=== PATIENT | female | born 1970 | race Caucasian/White ===

== ENCOUNTER → 2016-08-08 | Outpatient (CLI) | payer BC | LOC: ECHO 11:57 | DX: I49.3 Ventricular premature depolarization (principal); R55 Syncope and collapse; R00.2 Palpitations | CPT/HCPCS: ECHO; 93306 ==

== ENCOUNTER → 2020-12-11 | Outpatient (CLI) | payer BC | LOC: HEART 5 10-16 14:00 → ECHO 11-03 10:00 → HEART 5 11-03 11:00 → ECHO 11-06 09:00 | DX: I42.0 Dilated cardiomyopathy (principal); I34.0 Nonrheumatic mitral (valve) insufficiency; R00.2 Palpitations | CPT/HCPCS: ECHO; 93306 ==

== ENCOUNTER 2021-10-14 06:45 | Inpatient (IN) | payer BC ==
[~2021-10-14] VITALS: Ht 170.2 cm; Wt 78.0 kg
[2021-10-14 08:08] LABS: HEMOGLOBIN 13.1 gm/dl (12.3-15.3); RED BLOOD COUNT 4.49 M/UL (4.00-5.10); WHITE BLOOD COUNT 5.8 K/UL (4.5-11.0)
[2021-10-14 08:28] LABS: BUN/CREATININE RATIO 22 (0-10)
[2021-10-14] MEDS ORDERED: METOPROLOL TART25 MG PO (11:02)
[2021-10-14] MEDS ORDERED: ANASTROZOLE1 MG PO (11:02)
[2021-10-14] MEDS ORDERED: MELOXICAM15 MG PO (11:03)
[2021-10-14] MEDS ORDERED: PROAIR HFA8.5 GM INH (11:04)
[2021-10-14] MEDS ORDERED: COMPLETE FORMU1 EAC2 PO (11:05)
[2021-10-15 05:52] LABS: HEMOGLOBIN 13.1 gm/dl (12.3-15.3); RED BLOOD COUNT 4.4 M/UL (4.00-5.10); WHITE BLOOD COUNT 4.4 K/UL (4.5-11.0)
[2021-10-15 06:09] LABS: BUN/CREATININE RATIO 24 (0-10)
[2021-10-16 06:57] LABS: HEMOGLOBIN 13.6 gm/dl (12.3-15.3); RED BLOOD COUNT 4.74 M/UL (4.00-5.10)
[2021-10-16 07:02] LABS: WHITE BLOOD COUNT 5.9 K/UL (4.5-11.0)
[2021-10-16 07:20] LABS: BUN/CREATININE RATIO 35 (0-10)
--- NOTE | 2021-10-16 16:37 | NUR ---
WEANED PATIENT OFF HER OXYGEN TO ROOM AIR, SHE DENIES SOA AND SAT IS 96% AFTER 5 MINUTES OFF NC.
[2021-10-17 06:07] LABS: HEMOGLOBIN 12.9 gm/dl (12.3-15.3); RED BLOOD COUNT 4.32 M/UL (4.00-5.10)
[2021-10-17 06:18] LABS: WHITE BLOOD COUNT 4.3 K/UL (4.5-11.0)
[2021-10-17 06:26] LABS: BUN/CREATININE RATIO 38 (0-10)
[2021-10-17] MEDS ORDERED: LISINOPRIL5 MG PO (09:48)
[2021-10-17] MEDS ORDERED: METOPROLOL SUCC25 MG PO (09:48)
[2021-10-17] MEDS ORDERED: FUROSEMIDE20 MG PO (09:48)
[2021-10-17] MEDS ORDERED: ASPIRIN EC81 MG PO (09:48)
--- NOTE | 2021-10-17 16:38 | NUR ---
CALLED IN ALL NEW MEDS FOR PATIENT. SCRIPTS NOT SENT OR PRINTED JOSE FRANCISCO FRANKLIN R.N
== END 2021-10-17 11:47 | disposition home or self-care (01) | DRG 291 ==
LOC: ER1 06:45 → CDU 10:05 → MED SURG 4 10:05
PROVIDERS: Emergency Medicine; Internal Medicine; Physician Assistant; ADMIT Internal Medicine
PROC: B24BZZZ Ultrasonography of Heart with Aorta (ICD-10-PCS; principal; 2021-10-15)
DX: I11.0 Hypertensive heart disease with heart failure (principal); I50.43 Acute on chronic combined systolic (congestive) and diastolic (congestive) heart failure; Z20.822 Contact with and (suspected) exposure to COVID-19; J96.01 Acute respiratory failure with hypoxia; R65.10 Systemic inflammatory response syndrome (SIRS) of non-infectious origin without acute organ dysfunction; M19.90 Unspecified osteoarthritis, unspecified site; I42.9 Cardiomyopathy, unspecified; I49.3 Ventricular premature depolarization; I08.1 Rheumatic disorders of both mitral and tricuspid valves; Z85.3 Personal history of malignant neoplasm of breast; Z88.2 Allergy status to sulfonamides; Z79.01 Long term (current) use of anticoagulants; Z79.82 Long term (current) use of aspirin; Z90.11 Acquired absence of right breast and nipple; Z82.49 Family history of ischemic heart disease and other diseases of the circulatory system
CPT/HCPCS: ECHO; 36415; 71045; 80048; 80053; 82550; 82553; 83605; 83735; 83880; 84100; 84484; 85025; 85027; 87040; 93005; 93270; 93306; 94640; 94760; 96374; 99285; J1650; J1940; J2405; Q9967